=== PATIENT | male | born 1945 | race Caucasian/White ===

== ENCOUNTER 2020-03-17 08:46 | Day surgery (SDC) | payer MEDICARE, OTHER ==
[~2020-03-17] VITALS: Ht 177.8 cm; Wt 112.3 kg
[~2020-03-17 08:46] MED LIST: AMLO5 PO; BASAGLAR K100 UNIT/1 SC; HUMALOG JU100 UNIT/2 SC; HYDCHL25 PO; KLOR-CON M1010 MEQ PO; METF500 PO; TELM80 PO; testosterone inj IM
--- NOTE | 2020-03-17 09:30 | NUR ---
Patient states colon prep results clear. Ambulatory in Day Surgery. History, Chart, Medications and Allergies reviewed before start of procedure. Patient confirms NPO status and agrees with scheduled surgery. Patient confirms NPO status and agrees with scheduled surgery. Pre-Op teaching done. Pt verbalizes understanding. Patient States Post-Procedure ride home has been arranged.
--- NOTE | 2020-03-17 09:42 | NUR ---
03/17/20 0942 KATELYN MICHAEL History, Chart, Medications and Allergies reviewed before start of procedure. 3-LEAD EKG REVIEWED WITH PHYSICIAN PRIOR TO START OF PROCEDURE. O2 VIA N/C INTACT THROUGHOUT SEDATION/PROCEDURE. MONITOR INTACT WITH CONTINUOUS PULSE OXIMETRY AND INTERMITTENT BP. MODERATE SEDATION PER DR. FRIED.
== END 2020-03-17 10:47 | disposition home or self-care (01) ==
LOC: ORSCMMR 08:46 → ORD 09:30 → ORSCMMR 10:47
PROVIDERS: Anesthesiology; Internal Medicine Gastroenterology
PROC: 0DBN8ZX Excision of Sigmoid Colon, Via Natural or Artificial Opening Endoscopic, Diagnostic (ICD-10-PCS; principal; 2020-03-17 09:30)
DX: Z12.11 Encounter for screening for malignant neoplasm of colon (principal); Z86.010 Personal history of colon polyps; D12.5 Benign neoplasm of sigmoid colon; K57.30 Diverticulosis of large intestine without perforation or abscess without bleeding; I10 Essential (primary) hypertension; G47.33 Obstructive sleep apnea (adult) (pediatric); Z79.4 Long term (current) use of insulin; Z79.84 Long term (current) use of oral hypoglycemic drugs; Z79.899 Other long term (current) drug therapy
CPT/HCPCS: 82947; 88305; J2250; J3010; J7120; U0002

== ENCOUNTER 2020-09-09 07:25 | Day surgery (SDC) | payer MEDICARE, OTHER ==
[~2020-09-09] VITALS: Ht 177.8 cm; Wt 120.0 kg
[~2020-09-09 07:25] MED LIST changes: +COREG PO; +CYCL0.05OP RIGHTEYE; +EZET10; +FENO160 PO; +INSULIN AS100 UNIT10
[2020-09-09] MEDS ORDERED: HUMALOG100 UNIT/1 SC (07:59)
[2020-09-09] MEDS ORDERED: Aspir 8181 MG PO (09:30)
--- NOTE | 2020-09-09 11:03 | NUR ---
10CC AIR REMOVED FROM R WRIST TR BAND. -BLEEDING OR SWELLING.
== END 2020-09-09 23:50 | disposition home or self-care (01) ==
LOC: MHTC 07:25
DX: I35.0 Nonrheumatic aortic (valve) stenosis (principal); I44.0 Atrioventricular block, first degree; I11.0 Hypertensive heart disease with heart failure; I50.9 Heart failure, unspecified; E78.5 Hyperlipidemia, unspecified; E11.9 Type 2 diabetes mellitus without complications; Z79.4 Long term (current) use of insulin; E66.01 Morbid (severe) obesity due to excess calories; Z68.38 Body mass index [BMI] 38.0-38.9, adult; Z20.822 Contact with and (suspected) exposure to COVID-19; Z79.82 Long term (current) use of aspirin
CPT/HCPCS: 93454; 99152; C1769; C1894; J1644; J2250; J3010; J7030; J7040; J7050; Q9967

== ENCOUNTER → 2021-05-30 | Outpatient (CLI) | payer MEDICARE, OTHER ==
[~2021-05-30] MED LIST changes: +Aspir 8181 MG PO; +HUMALOG100 UNIT/1 SC
== END | disposition home or self-care (01) ==
LOC: LAB 11:04 → LAB SHORT 11:04
DX: D22.61 Melanocytic nevi of right upper limb, including shoulder (principal)
CPT/HCPCS: 88305

== ENCOUNTER 2022-05-12 08:58 | Inpatient (IN) | payer MEDICARE, OTHER ==
[~2022-05-12] VITALS: Ht 177.8 cm; Wt 125.8 kg
[~2022-05-12 08:58] MED LIST changes: +BASAGLAR K100 UNIT/1; -BASAGLAR K100 UNIT/1 SC
[2022-05-12 09:52] LABS: Albumin, Blood 3.1 g/dL (3.4-5.0); Albumin/Globulin Ratio 0.9 (0.8-1.8); Beta-hydroxybutyrate 32.8 mg/dL (0.2-2.8); Bilirubin, Total 1.4 mg/dL (0.1-1.0); Bun/Creatinine Ratio 49.3 (12.0-20.0); Calcium, Blood 8.8 mg/dL (8.5-10.1); Creatinine, Blood 1.38 mg/dL (0.60-1.20); Globulin, Blood 3.4 g/dL (2.2-4.0); Magnesium, Blood 2.3 mg/dL (1.6-2.4); Potassium, Blood 3.9 mmol/L (3.5-5.5); Total Protein, Blood 6.5 g/dL (6.4-8.2)
[2022-05-12 10:07] LABS: Hematocrit 29.4 % (37.0-53.0); Hemoglobin 10.4 g/dL (13.5-17.5); Mean Corpuscular HGB 29.6 pg (26.0-34.0); Mean Corpuscular HGB Conc 35.4 g/dL (31.5-36.5); Mean Corpuscular Volume 84 fL (80-100); Mean Platelet Volume 12.5 fL (9.1-12.4); RDW Coefficient Variation 13.4 % (11.7-14.2); RDW Standard Deviation 41.1 fL (35.1-46.3); Red Blood Cell Count 3.51 M/mm3 (4.30-5.90); White Blood Cell Count 9.28 K/mm3 (4.00-11.30)
[2022-05-12 10:12] LABS: Platelet Count 44 K/mm3 (150-400)
[2022-05-12 10:29] LABS: Influenza A, PCR NEGATIVE (NEGATIVE); Influenza B, PCR NEGATIVE (NEGATIVE); Resp Syncytial Virus, PCR NEGATIVE (NEGATIVE); SARS-Cov-2 (COVID-19) PCR, MMC NEGATIVE (NEGATIVE)
[2022-05-12 11:04] LABS: Source, Urine Clean Catch
[2022-05-12 11:10] LABS: BAND PERCENT MAN 39 % (0-8); BASOPHILS PERCENT MAN 0 % (0-2); EOSINOPHILS PERCENT MAN 0 % (0-6); LYMPHOCYTES ABSOLUTE MAN 0.27 K/mm3 (0.84-5.20); LYMPHOCYTES PERCENT MAN 3 % (21-46); MONOCYTES ABSOLUTE MAN 0.37 K/mm3 (0.16-1.47); MONOCYTES PERCENT MAN 4 % (4-13); NEUTROPHILS ABSOLUTE MAN 8.63 K/mm3 (1.96-9.15); SEG NEUTROPHILS PERCENT MAN 54 % (41-73); TOTAL CELLS COUNTED 100
[2022-05-12 11:30] LABS: Appearance, Urine Hazy (Clear); Bilirubin, Urine Neg (Neg); Blood, Urine 5+ (Neg); Color, Urine Yellow (P-Yellow); Glucose Qualitative, Urine 4+ (Neg); Ketones, Urine 1+ (Neg); Leukocyte Esterase, Urine 1+ (Neg); Nitrite, Urine Neg (Neg); Protein, Urine 3+ (Neg); Urobilinogen, Urine NORM (Normal)
[2022-05-12 11:41] LABS: Bacteria Rare /hpf; Red Blood Cells, Urine 0-2 /hpf (0-2); Squamous Epithelial Cells Few /hpf (Few)
[2022-05-12 11:43] LABS: Mucus Light (0-Heavy)
[2022-05-12 14:19] LABS: Acetaminophen, Random <2.0 ug/mL (10.0-30.0)
[2022-05-12 14:21] LABS: Phosphorus, Blood 2.2 mg/dL (2.5-4.9); Thyroid Stimulating Hormone 0.787 uIU/mL (0.360-4.800)
[2022-05-12 14:26] LABS: Albumin, Blood 2.6 g/dL (3.4-5.0); Anion Gap 15 mmol/L (6-16); Blood Urea Nitrogen 71 mg/dL (8-24); Bun/Creatinine Ratio 51.1 (12.0-20.0); CO2, Blood 19 mmol/L (21-32); Chloride, Blood 99 mmol/L (98-108); Creatinine, Blood 1.39 mg/dL (0.60-1.20); Glomerular Filtration Rate 53 (60-); Glucose, Blood 392 mg/dL (70-99); Phosphorus, Blood 2.2 mg/dL (2.5-4.9); Potassium, Blood 3.9 mmol/L (3.5-5.5); Sodium, Blood 133 mmol/L (136-145)
[2022-05-12 16:23] LABS: Hematocrit 29.7 % (37.0-53.0); Hemoglobin 10.3 g/dL (13.5-17.5); Mean Corpuscular HGB 29.4 pg (26.0-34.0); Mean Corpuscular HGB Conc 34.7 g/dL (31.5-36.5); Mean Corpuscular Volume 85 fL (80-100); RDW Coefficient Variation 13.6 % (11.7-14.2); RDW Standard Deviation 41.7 fL (35.1-46.3); White Blood Cell Count 9.53 K/mm3 (4.00-11.30)
[2022-05-12 16:35] LABS: Mean Platelet Volume 13.5 fL (9.1-12.4)
[2022-05-12 16:36] LABS: Platelet Count 37 K/mm3 (150-400)
[2022-05-12 16:50] LABS: BAND PERCENT MAN 22 % (0-8); BASOPHILS PERCENT MAN 0 % (0-2); EOSINOPHILS PERCENT MAN 0 % (0-6); LYMPHOCYTES % ATYPICAL MANUAL 1 % (0-0); LYMPHOCYTES ABSOLUTE MAN 0.19 K/mm3 (0.84-5.20); LYMPHOCYTES PERCENT MAN 1 % (21-46); MONOCYTES ABSOLUTE MAN 0.38 K/mm3 (0.16-1.47); MONOCYTES PERCENT MAN 4 % (4-13); NEUTROPHILS ABSOLUTE MAN 8.95 K/mm3 (1.96-9.15); SEG NEUTROPHILS PERCENT MAN 72 % (41-73); TOTAL CELLS COUNTED 100
[2022-05-12 18:14] LABS: D-Dimer, Quantitative 8.17 mg/L FEU (0.00-0.52)
--- NOTE | 2022-05-12 18:42 | NUR ---
PCU ADMIT / END OF SHIFT NOTE PT BROUGHT TO PCU-09 BY DEEPA FROM ER @ APPROX 1500. PT A&O X4. VSS. MONITOR SHOWING AFIB, HR 40s-70s. SPO2 > 92% ON 2L NC. PT REPORTS RA @ BASELINE & CPAP @ NIGHT. PT W/ L-SIDED WEAKNESS, UNABLE TO GENERAL AGENT THIS RN's HAND W/ LEFT HAND. MD HOGUE W/ ORDER FOR HEAD CT. HEAD CT DONE. PT BACK IN . W/ ORDER FOR REPEAT HEAD CT @ 0200. PT DENIES HEADACHE OR ANY OTHER PAIN/DISCOMFORT. PT DOES GRIMACE W/ REPOSITIONING IN BED. NS GTT INFUSING PER ORDERS. NA PHOS INFUSING PER ORDER. IRAHETA CATH PATENT & DRAINING. PT WAS AT THE BEDSIDE, NOW GONE. PT IN BED W/ BED ALARM ON. CALL LIGHT IN REACH.
--- NOTE | 2022-05-12 20:19 | NUR ---
Contacted Dr. Johnson regarding CBG order for q4, and coverage ordered for Q4 dosing, however emar only allows Q6 dosing. Advised to follow Q6 dosing every 4 hours.
--- NOTE | 2022-05-12 22:26 | NUR ---
Dr. Velasquez contacted regarding gram positive blood cultures in chains, and regarding patient worsening L side deficit. No response to painful stimuli, not able to lift arm. CT due at 0200 to be done now.
--- NOTE | 2022-05-13 00:11 | NUR ---
Contacted Dr. Velasquez regarding elevated CBG again at 0000 check at 455. New orders recieved and orders to retake CBG in 1 hr.
--- NOTE | 2022-05-13 01:39 | NUR ---
Dr. Gan notified of repeat CBG over 400, orders for 1L LR bolus and repeat CBG in 1 hr.
[2022-05-13 04:19] LABS: Hematocrit 27.2 % (37.0-53.0); Hemoglobin 9.5 g/dL (13.5-17.5); Mean Corpuscular HGB 29.4 pg (26.0-34.0); Mean Corpuscular HGB Conc 34.9 g/dL (31.5-36.5); Mean Corpuscular Volume 84 fL (80-100); RDW Coefficient Variation 13.6 % (11.7-14.2); RDW Standard Deviation 42.4 fL (35.1-46.3); Red Blood Cell Count 3.23 M/mm3 (4.30-5.90); White Blood Cell Count 9.08 K/mm3 (4.00-11.30)
--- NOTE | 2022-05-13 04:22 | NUR ---
Patient's BP began to drop with MAP's in 50's after the 1L LR bolus. Physician contacted and requested transfer to ICU for Levo gtt and another 1L LR bolus. Patient's CBG 375, RR 34, physician aware. Temp continues to be over 102 despite rectal tylenol, cooling pad, no blankets, and fan. Report given to Sabi Harden Soha notified of transfer.
[2022-05-13 04:29] LABS: Platelet Count 28 K/mm3 (150-400)
[2022-05-13 04:40] LABS: Albumin, Blood 2.2 g/dL (3.4-5.0); Albumin/Globulin Ratio 0.8 (0.8-1.8); Bilirubin, Total 1.1 mg/dL (0.1-1.0); Bun/Creatinine Ratio 49.2 (12.0-20.0); Calcium, Blood 7.7 mg/dL (8.5-10.1); Creatinine, Blood 1.89 mg/dL (0.60-1.20); Globulin, Blood 2.7 g/dL (2.2-4.0); Magnesium, Blood 2.4 mg/dL (1.6-2.4); Phosphorus, Blood 1.7 mg/dL (2.5-4.9); Potassium, Blood 3.7 mmol/L (3.5-5.5); Total Protein, Blood 4.9 g/dL (6.4-8.2)
[2022-05-13 04:44] LABS: BAND PERCENT MAN 21 % (0-8); BASOPHILS PERCENT MAN 0 % (0-2); EOSINOPHILS PERCENT MAN 0 % (0-6); LYMPHOCYTES % ATYPICAL MANUAL 1 % (0-0); LYMPHOCYTES ABSOLUTE MAN 0.36 K/mm3 (0.84-5.20); LYMPHOCYTES PERCENT MAN 3 % (21-46); MONOCYTES ABSOLUTE MAN 0.63 K/mm3 (0.16-1.47); MONOCYTES PERCENT MAN 7 % (4-13); NEUTROPHILS ABSOLUTE MAN 8.08 K/mm3 (1.96-9.15); SEG NEUTROPHILS PERCENT MAN 68 % (41-73); TOTAL CELLS COUNTED 100
--- NOTE | 2022-05-13 04:59 | NUR ---
RECIEVED REPORT FROM ANNY Solorzano RN. PATIENT TO ICU 12 FROM PCU AT 0410. PATIENT SLID TO BED. PATIEN IS LETHARIC BUT RESPONDS TO VERBAL STIMULI, ORIENTED TO SELF ONLY. UNABLE TO OPEN EYES OR FOLLOW ANY COMMANDS. LUE FLACCID, OTHERWISE LOCALIZES TO PAIN AND ABLE TO MOVE ALL EXTREMITIES. 02 SATS 98% ON CPAP WITH 3L 02. LS CLEAR TO DIMINISHED IN THE BASES. RR 25-30s, DRY COUGH. HR A.FIB 60-70s, WITH BRADYCARDIA DOWN TO THE 30s. BP STABLE WITH 1L LR FLUID BOLUS INFUSING AND 125 MLS/HR NS. WILL START LEVOPHED IF NEEDED. IRAHETA IS PATENT AND DRAINING TO GRAVITY, DARK JEREMIAH WITH SEDIMENT. RECTAL TEMP PROBE IN PLACE, TEMP OF 102.2 ON ARRIVAL TO THE UNIT, FAN AND ICE PACKS PLACED, TEMP NOW 101.5. PER PCU RR, FAMILY WAS NOTIFIED OF PATIENTS CONDITION AND TRANSFER TO ICU.
--- NOTE | 2022-05-13 07:02 | NUR ---
PATIENT ABLE TO FOLLOW SOME SIMPLE COMMANDS AND MOVE RIGHT SIDE, LEFT UPPER ARM REMAINS FLACCID. DR. HOGUE IN THE AM TO SEE PATIENT AND AWARE OF LOW PALTELET COUNT, BLOOD CULTURES. Q1 NEURO CHECKS. LEVOPHED TO BE STARTED IF MAP >55. SEE PREVIOUS NOTE FOR MORE INFORMATION.
[2022-05-13 07:46] LABS: International Normalized Ratio 1.13; Prothrombin Time Results 11.8 Sec (9.7-11.5); Uric Acid, Blood 10.3 mg/dL (3.5-7.2)
--- NOTE | 2022-05-13 17:11 | NUR ---
SHIFT SUMMARY PT HAS REMAINED LETHARGIC THIS SHIFT AND HAS SLEPT THROUGHOUT THE DAY. PT AWAKENS TO VERBAL STIMULI BREIFLY. PT ANSWERS SIMPLE QUESTIONS AND CAN SQUEEZE RIGHT HAND UPON COMMAND. LEFT UPPER EXTREMITY REMAINS FLACCID AND DOES NOT WITHDRAW TO NOXIOUS STIMULI. PT MOVES BOTH LEGS SPONTANEOUSLY. PT ON 6L O2 NC AT THIS TIME. PT ON CPAP OF 6 WITH 3L O2 BLEED IN MOST OF THE SHIFT. VITAL SIGNS STABLE. HR REMAINS AFIB WITH RATE 40-60'S. PICC PLACED TO CHARLES THIS SHIFT. BICARB INFUSING AT 100 ML/HR AND NS TKO. IRAHETA REMAINS IN PLACE WITH DARK YELLOW OUTPUT NOTED. PT SPOUSE AT BEDSIDE THIS AFTERNOON AND UPDATED TO PLAN OF CARE. WILL CONTINUE TO MONITOR AND REPORT OFF TO ONCOMING RN.
[2022-05-13 18:14] LABS: PCO2 Arterial 32.9 mmHg (35-45); PO2 Arterial 58.3 mmHg (80-100); pH Blood Arterial 7.44 (7.35-7.45)
--- NOTE | 2022-05-13 19:00 | NUR ---
ASSUMED CARE/CODE BLUE ASSUMED CARE FROM VENKATA RN, PT AWNSERING SIMPLE QUESTIONS, BUT NOT OPENING EYES. AFTER LEAVING ROOM FOLLOWING REPORT, PT BEGAN HAVING SEIZURE-LIKE MOVEMENTS. MULTIPLE STAFF IN ROOM AND PT ROLLED TO RIGHT SIDE. PT BECAME UNRESPONSIVE AND CODE BLUE ACTIVATED. PT INTUBATED. SEE CODE SHEET FOR EVENTS. OBTAINED ROSC. TO BEDSIDE. PT TO CT POST CODE. STARTED LEVOPHED IN CT. VASOPRESSIN STARTED IN ICU. SEE FLOWSHEET FOR TITRATIONS.
[2022-05-13 19:46] LABS: Hematocrit 30.6 % (37.0-53.0); Hemoglobin 10.3 g/dL (13.5-17.5); Mean Corpuscular HGB 29.1 pg (26.0-34.0); Mean Corpuscular HGB Conc 33.7 g/dL (31.5-36.5); Mean Corpuscular Volume 86 fL (80-100); RDW Coefficient Variation 13.8 % (11.7-14.2); RDW Standard Deviation 43.8 fL (35.1-46.3); Red Blood Cell Count 3.54 M/mm3 (4.30-5.90); White Blood Cell Count 15.65 K/mm3 (4.00-11.30)
[2022-05-13 19:51] LABS: International Normalized Ratio 1.13; Prothrombin Time Results 11.8 Sec (9.7-11.5)
[2022-05-13 19:54] LABS: Albumin, Blood 2.1 g/dL (3.4-5.0); Albumin/Globulin Ratio 0.7 (0.8-1.8); Calcium, Blood 7.6 mg/dL (8.5-10.1); Creatinine, Blood 1.89 mg/dL (0.60-1.20); Total Protein, Blood 5.1 g/dL (6.4-8.2)
[2022-05-13 20:07] LABS: Mean Platelet Volume 13.1 fL (9.1-12.4); Platelet Count 29 K/mm3 (150-400)
[2022-05-13 20:25] LABS: BAND PERCENT MAN 19 % (0-8); BASOPHILS PERCENT MAN 0 % (0-2); EOSINOPHILS ABSOLUTE MAN 0.15 K/mm3 (0.00-0.68); EOSINOPHILS PERCENT MAN 1 % (0-6); LYMPHOCYTES ABSOLUTE MAN 3.75 K/mm3 (0.84-5.20); LYMPHOCYTES PERCENT MAN 24 % (21-46); METAMYELOCYTE ABSOLUTE MAN 0.46 K/mm3 (0.00-0.00); METAMYELOCYTE PERCENT MAN 3 % (0-0); MONOCYTES PERCENT MAN 9 % (4-13); MYELOCYTE ABSOLUTE MAN 0.15 K/mm3 (0.00-0.00); MYELOCYTE PERCENT MAN 1 % (0-0); SEG NEUTROPHILS PERCENT MAN 43 % (41-73); TOTAL CELLS COUNTED 100
--- NOTE | 2022-05-13 21:45 | NUR ---
MAGGI UPDATED ON PATIENT STATUS. NO NEW ORDERS.
[2022-05-13 22:25] LABS: Creatine Kinase MB 3.4 ng/mL (0.0-3.6); Creatine Kinase MB Index 0.9 (0.0-4.0)
[2022-05-14 00:08] LABS: HBSAG SCREEN Negative (Negative); HCV AB <0.1 (0.0-0.9); HEP A AB, IGM Negative (Negative); HEP B CORE AB, IGM Negative (Negative); HIV AB/P24 AG SCREEN Non Reactive (Non Reactive)
--- NOTE | 2022-05-14 00:30 | NUR ---
INSULIN CALL MADE TO DR. CASTILLO REGARDING 2100 GLARGINE AND SLIDING SCALE INSULIN. ORDERS RECEIVED FOR GLARGINE TO BE DECREASED TO 20 UNITS BID FROM 40 UNITS BID AND SLIDING SCALE TO BE DECREASED FROM HIGH TO LOW SLIDING SCALE. IF BLOOD GLUCOSE IS BELOW 200 THEN SKIP 0900 DOSE OF GLARGINE.
[2022-05-14 05:39] LABS: Hematocrit 25.9 % (37.0-53.0); Hemoglobin 9.2 g/dL (13.5-17.5); Mean Corpuscular HGB 29.8 pg (26.0-34.0); Mean Corpuscular HGB Conc 35.5 g/dL (31.5-36.5); Mean Corpuscular Volume 84 fL (80-100); RDW Coefficient Variation 14.1 % (11.7-14.2); RDW Standard Deviation 43.5 fL (35.1-46.3); Red Blood Cell Count 3.09 M/mm3 (4.30-5.90); White Blood Cell Count 13.86 K/mm3 (4.00-11.30)
[2022-05-14 05:58] LABS: Albumin, Blood 2.1 g/dL (3.4-5.0); Albumin/Globulin Ratio 0.8 (0.8-1.8); Bilirubin, Total 1.9 mg/dL (0.1-1.0); Bun/Creatinine Ratio 56.2 (12.0-20.0); Calcium, Blood 7.4 mg/dL (8.5-10.1); Creatinine, Blood 2.03 mg/dL (0.60-1.20); Globulin, Blood 2.7 g/dL (2.2-4.0); Magnesium, Blood 2.6 mg/dL (1.6-2.4); Phosphorus, Blood 3.7 mg/dL (2.5-4.9); Potassium, Blood 3.5 mmol/L (3.5-5.5); Total Protein, Blood 4.8 g/dL (6.4-8.2)
[2022-05-14 06:03] LABS: Platelet Count 31 K/mm3 (150-400)
--- NOTE | 2022-05-14 06:32 | NUR ---
SHIFT SUMMARY PT INTUBATED AND SEDATED T/O NIGHT. AC/VC 16/550/10/60%. SPO2 GREATER THAN 92%. RR 20'S. LEVOPHED AND VASOPRESSIN GTT TITRATED TO KEEP MAP GREATER THAN 65. CAIO STARTED AND NOW ON STANDBY. PROPOFOL GTT FOR SEDATION. NO RESPONSE IN BUE. PUPILS SLUGGISH. AFIB WITH FREQUENT PAUSES UP TO 5 SECONDS. HR 30-60'S. OGT TO LIS, MINIMAL DARK BROWN/BLACK OUTPUT. IRAHETA IN PLACE AND DRAINING TO GRAVITY. 325ML OUTPUT. NATHAN NOTIFIED OF MORNING LABS AND ORDER RECEIVED TO DECREASE THE RATE OF SODIUM BICARB GTT TO 50ML/HR.
[2022-05-14 06:43] LABS: BAND PERCENT MAN 36 % (0-8); BASOPHILS PERCENT MAN 0 % (0-2); EOSINOPHILS PERCENT MAN 0 % (0-6); LYMPHOCYTES ABSOLUTE MAN 0.55 K/mm3 (0.84-5.20); LYMPHOCYTES PERCENT MAN 4 % (21-46); METAMYELOCYTE ABSOLUTE MAN 0.13 K/mm3 (0.00-0.00); METAMYELOCYTE PERCENT MAN 1 % (0-0); MONOCYTES ABSOLUTE MAN 0.55 K/mm3 (0.16-1.47); MONOCYTES PERCENT MAN 4 % (4-13); NEUTROPHILS ABSOLUTE MAN 12.61 K/mm3 (1.96-9.15); SEG NEUTROPHILS PERCENT MAN 55 % (41-73); TOTAL CELLS COUNTED 100
--- NOTE | 2022-05-14 07:00 | NUR ---
ASSUME CARE: I have assumed care of this patient.
[2022-05-14 10:48] LABS: PCO2 Arterial 31.9 mmHg (35-45); PO2 Arterial 67.1 mmHg (80-100); pH Blood Arterial 7.42 (7.35-7.45)
--- NOTE | 2022-05-14 13:33 | NUR ---
Family Meeting: Met with pt's Soha at bedside this morning. She was admittedly feeling "shook up" this morning. I introduced myself to her, and she asked if I could call her son right away, as he already "called a little while ago, and no one has called him back" she states. She tells me she "doesn't understand" what is happening, and that her son is a nurse, daughter- in-law a doctor, both for the [employer] in [place], [place]. Placed call to Joe, pt's son. He was pleasant, asked appropriate questions. He also requested a call from the intensivies, so I passed the request to Dr. Huerta. Pt underwent a sedation vacation at approx 1230pm and as of now, at 1430 he has not awakened. Palliatve care will remain availalable as neded.
--- NOTE | 2022-05-14 18:07 | NUR ---
SHIFT SUMMARY: NEURO: propofol paused for approximately 5 hours today. While off propofol, pt was visualized having localized seizure with rhythmic movement of the LUE with bilateral eye deviation to the left and up. Prior to seizure activity, pt opened eyes to stimuli. RN unable to produce any withdrawal or purposeful movement of extremities. Propofol restarted at [address] Huerta. Eyes deviated up at this time. +cough/+corneals/+babinski/-gag/-oculocephalic CARDIAC: afib on monitor. pauses up to 5 seconds noted prior to dopamine initiation. HR in 80's without pauses since dopamine started. levophed since titrated off. Vasopressin off since AM. RESPIRATORY: AC/VC 16/550/10/50%. minimal secretions GI/: VHP tube feeds initiated at 20. BM this AM. Gibson in place and training to gravity. SKIN: no breakdown noted PSYCH/SOCIAL: at bedside and supportive throughout the day. Son, Joe, called and updated on pt status.
--- NOTE | 2022-05-15 03:00 | NUR ---
SEIZURE LIKE ACTIVITY VISULIZED IN THE LT HAND TWITCHING THUMB GAVE 2MG OF VERSED TWITCHING STOPPED
[2022-05-15 04:07] LABS: BASOPHILS ABSOLUTE AUTO 0.02 K/mm3 (0.00-0.23); BASOPHILS PERCENT AUTO 0 % (0-2); EOSINOPHILS ABSOLUTE AUTO 0.06 K/mm3 (0.00-0.68); EOSINOPHILS PERCENT AUTO 1 % (0-6); Hematocrit 24.9 % (37.0-53.0); Hemoglobin 8.7 g/dL (13.5-17.5); IMMATURE GRAN ABSOLUTE AUTO 0.24 K/mm3 (0.00-0.10); IMMATURE GRAN PERCENT AUTO 2 % (0-1); LYMPHOCYTES ABSOLUTE AUTO 0.96 K/mm3 (0.84-5.20); LYMPHOCYTES PERCENT AUTO 7 % (21-46); MONOCYTES ABSOLUTE AUTO 0.97 K/mm3 (0.16-1.47); MONOCYTES PERCENT AUTO 7 % (4-13); Mean Corpuscular HGB 29.2 pg (26.0-34.0); Mean Corpuscular HGB Conc 34.9 g/dL (31.5-36.5); Mean Corpuscular Volume 84 fL (80-100); Mean Platelet Volume 12.9 fL (9.1-12.4); NEUTROPHILS ABSOLUTE AUTO 10.85 K/mm3 (1.96-9.15); NEUTROPHILS PERCENT AUTO 83 % (41-73); Platelet Count 62 K/mm3 (150-400); RDW Coefficient Variation 14.2 % (11.7-14.2); RDW Standard Deviation 43.5 fL (35.1-46.3); Red Blood Cell Count 2.98 M/mm3 (4.30-5.90)
[2022-05-15 04:11] LABS: Base Excess Venous 1.7 mmol/L; Bicarbonate Venous 25.6 mmol/L (24.0-30.0); PCO2 Venous 39.1 mmHg (38-42); pH Blood Venous 7.43 (7.34-7.37)
[2022-05-15 04:32] LABS: International Normalized Ratio 1.16; Prothrombin Time Results 12.1 Sec (9.7-11.5)
[2022-05-15 04:36] LABS: Albumin, Blood 1.9 g/dL (3.4-5.0); Albumin/Globulin Ratio 0.7 (0.8-1.8); Bilirubin, Total 1.9 mg/dL (0.1-1.0); Calcium, Blood 7.3 mg/dL (8.5-10.1); Creatinine, Blood 1.61 mg/dL (0.60-1.20); Globulin, Blood 2.8 g/dL (2.2-4.0); Magnesium, Blood 2.8 mg/dL (1.6-2.4); Phosphorus, Blood 2.4 mg/dL (2.5-4.9); Potassium, Blood 3.2 mmol/L (3.5-5.5); Total Protein, Blood 4.7 g/dL (6.4-8.2)
--- NOTE | 2022-05-15 06:43 | NUR ---
END OF SHIFT PT HAS REMAINED HANNA STABLE ON 10 OF DOPAMINE TIRATED TO MAINTAIN MAP >70. HE IS SEDATED ON PROP AT 25 GTT. VERSED 2MG GIVEN FOR SEIZURE ACTIVITIY AND VALUME 5MG GIVEN FOR SEIZURE ACTIVITY. LEFT HAND THUMB TWITCHES AND MOUTH TWITHCHING AND AT ITS WORST THE RT ARM RYTHMICLY MOVING. NEURO + CORNIAL AND COUGH NO GAG AND NO OTHER MOVEMENT TO PAIN PT HAS + BABINSKY RLE. PUPIL BL 2MM SLUGISH. WILL CONTINUE TO MONITOR AND REPORT OFF TO ONCOMING RN
--- NOTE | 2022-05-15 09:24 | NUR ---
ASSUMED CARE REPORT FROM LENIN DELANEY AT 0700. PT INTUBATED AND SEDATED. VENT SETTINGS AC/VC 16/550/8/60%. LUNGS CLEAR. SMALL THICK OTERO SECRETIONS FROM ETT. PROPOFOL GTT INFUSING. PT GRIMACES c ORAL CARE. DOES NOT FOLLOW COMMANDS. NO CORNEAL REFLEX, +COUGH/SWALLOW, NO GAG. DOES NOT WITHDRAW EXT TO PAIN. + BABINSKI TO LLE. OCCASIONAL RHYTHMIC MOVEMENT TO LEFT HAND. NO OTHER MOVEMENT NOTED. SR, RATE 60-70'S ON MONITOR. DOPAMINE GTT INFUSING FOR MAP>70. ABD OBESE, SOFT, NON TENDER, BT X 4. TUBE FEED AT 45 ML/HR c 30 ML FLUSH q4 HR. IRAHETA PATENT, DRAINING CLEAR YELLOW URINE TO GRAVITY. PICC TO E, DRESSING C/D/I. NAHCO3 AT 50 ML/HR. PLAN FOR EEG THIS SHIFT. WILL CONTINUE TO MONITOR.
[2022-05-15 11:13] LABS: Vancomycin, Random 10.6 ug/mL
[2022-05-15 11:28] LABS: Glucose, Blood 533 mg/dL (70-99)
--- NOTE | 2022-05-15 15:12 | NUR ---
SEDATION VACATION/EEG PROPOFOL PLACED ON STANDBY FOR APPROX 45 MINUTES DURING EEG. TREMORS TO LEFT HAND INCREASED. PT DOES NOT OPEN EYES SPONT OR FOLLOW COMMANDS. PT HAD TWO EPISODES OF MOVEMENT OF HEAD TO LEFT SIDE c RHYTHMIC JERKING. PT APPEARS TO BE BITING ON ETT AND WAS UNRESPONSIVE TO PAINFUL STIMULI. PROPOFOL RESTARTED.
--- NOTE | 2022-05-15 17:27 | NUR ---
SHIFT SUMMARY PT REMAINS INTUBATED AND SEDATED. VENT SETTINGS UNCHANGED 16/550/8/50%. LUNGS CLEAR. SMALL THICK OTERO SECRETIONS FROM ETT. PROPOFOL GTT FOR SEDATION, SEE PREVIOUS NOTE FOR SEDATION VACATION/EEG. COUGH/SWALLOW REFLEX. DOES NOT FOLLOW COMMANDS, OPEN EYES OR WITHDRAW FROM PAINFUL STIMULI. GRIMACES c ORAL CARE. OCCASIONAL TICKS TO LEFT HAND. ABLE TO INITIATE COUGH AND GRIMACE WHEN PT HAVING THESE HAND MOVEMENTS. AFIB c PACS, RATE 60'S. DOPAMINE GTT FOR MAP>70, INFUSING AT 10 MCG/KG/MIN. TUBE FEEDS AT GOAL, 55 ML/HR. ABD OBESE, SOFT, NON TENDER. BT X 4. IRAHETA PATENT, DRAINED 1750 ML CLEAR YELLOW URINE OUT. TMAX 101.2, TYLENOL GIVEN AND FAN PLACED. INSULIN GTT STARTED THIS SHIFT, q1 HR CHEMBG. PICC TO VIOLETA, DRESSING C/D/I. WILL CONTINUE TO MONITOR UNTIL REPORT TO ONCOMING NURSE.
--- NOTE | 2022-05-15 18:45 | NUR ---
EEG RESULTS SPOKE c DR NINA. REPORTED TWO SEIZURES LASTING APPROX 40-50 SEC ON EEG. THESE CORELATED c HEAD TURNED TO RIGHT, HEAD, NECK, LEFT ARM MOVEMENT. FREQUENT LEFT HAND MOVEMENT DID NOT CORELATE c ANY SEIZURES. DR MENDENHALL UPDATED.
--- NOTE | 2022-05-15 19:15 | NUR ---
ASSUMED CARE OF PT @1900. BEDSIDE REPORT. PT IS SEDATED AND INTUBATED. PROPOFOL 25MCG/KG/MIN. ETT 8.0 & 25@TEETH. AC VC 16/550/8/50%. HR 60'S, SBP 100-110, MAP >70. DOPAMINE 8MCG/KG/MIN. RR 20, SPO2 >92%. PICC LINE IN CHARLES INFUSING AND PATENT. INSULIN 12U/HR, BICARB 50MLS/HR, TKO NS 10MLS/HR. 20GA IV L HAND PATENT AND SALINE LOCK. SCD'S ON, RECTAL TEMP PROBE IN PLACE T-100.3. OG TUBE INFUSING VITAL HP @55MLS/HR GOAL RATE.
--- NOTE | 2022-05-16 02:10 | NUR ---
SEIZURE ACTIVITY VISUALIZED DURING REPOSITIONING. PT EXPERIENCED GENERALIZED TWITCHING AND UPWARD GAZE FOR APPROX 30 SECONDS.
--- NOTE | 2022-05-16 04:05 | NUR ---
PT HAVING INCREASE IN SEIZURE ACTIVITY. DR VARELA NOTIFIED. VALIUM ADDED TO EMAR FOR PRN ADMINISTRATION.
[2022-05-16 04:06] LABS: Hematocrit 26.1 % (37.0-53.0); Hemoglobin 8.9 g/dL (13.5-17.5)
[2022-05-16 04:28] LABS: Albumin, Blood 1.8 g/dL (3.4-5.0); Anion Gap 9 mmol/L (6-16); Blood Urea Nitrogen 101 mg/dL (8-24); Bun/Creatinine Ratio 79.5 (12.0-20.0); CO2, Blood 27 mmol/L (21-32); Calcium, Blood 7.9 mg/dL (8.5-10.1); Chloride, Blood 105 mmol/L (98-108); Creatinine, Blood 1.27 mg/dL (0.60-1.20); Glomerular Filtration Rate 59 (60-); Glucose, Blood 241 mg/dL (70-99); Magnesium, Blood 2.8 mg/dL (1.6-2.4); Potassium, Blood 3.1 mmol/L (3.5-5.5); Sodium, Blood 141 mmol/L (136-145)
--- NOTE | 2022-05-16 06:14 | NUR ---
SUMMARY NEURO/PSYCH/MOBILITY: PT IS SEDATED AND INTUBATED. PROPOFOL 25MCG/KG/MIN. PT HAS CONTINUAL MYOCLONUS OF LUE. PT'S PLANTAR REFLEX ON LLE RESEMBLES A POSITIVE BABINSKI REFLEX. DOES NOT WITHDRAW FROM OTHER NOXIOUS STIMULI. SLIGHT FACIAL GRIMACE DURING ORAL SUCTIONING AND ORAL CARE. PUPILS SMALL AND SLUGGISH. NEGATIVE CORNEAL REFLEX. DURING 0200 REPOSITIONING PT OBSERVED EXHIBITING SEIZURE ACTIVITY FOR APPROX 30 SECONDS. GENERALIZED MYOCLONUS AND EYES ROLLED UPWARDS. PT CONTINUED TO HAVE MORE EPISODES OF SEIZURE LIKE ACTIVITY. DR VARELA NOTIFIED AND VALIUM ORDERED AND GIVEN PRN. PT TMAX THIS SHIFT 100.2. BSWR IN PLACE. PT IS MAXIMUM ASSISTANCE FOR ALL ADL'S. RESP: INTUBATED. AC VC 16/550/8/50%. RR 16-20. SPO2 >94%. LUNG SOUNDS CLEAR W/DIMINISHED BASES. CARDIAC: AFIB RHYTHM. DOPAMINE 7MCG/KG/MIN. HR 60'S. SBP 130-140'S. CONTINUOUS CARDIAC MONITORING. EDEMA 1+ IN ALL EXTREMETIES. GI: OGT INFUSING VITAL HP @55MLS/HR GOAL RATE. BOWEL SOUNDS MORE ACTIVE THROUGHOUT SHIFT. NO BM THIS SHIFT. : TEMP IRAHETA PATENT AND DRAINING DARK YELLOW URINE TO GRAVITY. SKIN: ASSESSEMENT REMAINS UNCHANGED. PICC CHARLES PATENT AND INFUSING. ENDO: INSULIN INFUSING @15U/HR. CBG Q1HR
[2022-05-16 06:35] LABS: BASOPHILS ABSOLUTE AUTO 0.03 K/mm3 (0.00-0.23); BASOPHILS PERCENT AUTO 0 % (0-2); EOSINOPHILS ABSOLUTE AUTO 0.03 K/mm3 (0.00-0.68); EOSINOPHILS PERCENT AUTO 0 % (0-6); Hematocrit 25.2 % (37.0-53.0); Hemoglobin 8.9 g/dL (13.5-17.5); IMMATURE GRAN ABSOLUTE AUTO 0.67 K/mm3 (0.00-0.10); IMMATURE GRAN PERCENT AUTO 4 % (0-1); LYMPHOCYTES ABSOLUTE AUTO 1.05 K/mm3 (0.84-5.20); LYMPHOCYTES PERCENT AUTO 6 % (21-46); MONOCYTES ABSOLUTE AUTO 1.24 K/mm3 (0.16-1.47); MONOCYTES PERCENT AUTO 7 % (4-13); Mean Corpuscular HGB 29.8 pg (26.0-34.0); Mean Corpuscular HGB Conc 35.3 g/dL (31.5-36.5); Mean Corpuscular Volume 84 fL (80-100); NEUTROPHILS ABSOLUTE AUTO 15.85 K/mm3 (1.96-9.15); NEUTROPHILS PERCENT AUTO 84 % (41-73); Platelet Count 80 K/mm3 (150-400); RDW Coefficient Variation 14.3 % (11.7-14.2); RDW Standard Deviation 44.4 fL (35.1-46.3); Red Blood Cell Count 2.99 M/mm3 (4.30-5.90); White Blood Cell Count 18.87 K/mm3 (4.00-11.30)
[2022-05-16 06:48] LABS: Mean Platelet Volume 13.8 fL (9.1-12.4)
--- NOTE | 2022-05-16 08:18 | NUR ---
ASSUMED CARE BEDSIDE REPORT FROM BASILIO/SHELLY DELANEY AT 0700. PT INTUBATED AND SEDATED. VENT SETTINGS AC/VC 16/550/8/50%. LUNGS CLEAR. SCANT THIN CLEAR SECRETIONS FROM ETT. PROPOFOL GTT FOR SEDATION. AT SHIFT CHANGE AND AM ASSESSMENT, TWO SEIZURE ACTIVITY NOTED, UPWARD GAZE, HEAD AND LEFT SHOULDER JERKING. INCREASED PROPOFOL TO 35 MCG/KG/MIN, NO FURTHER SEIZURE ACTIVITY AT THIS TIME. COUGH/SWALLOW REFLEX. PUPILS PINPOINT. FLEXS BILATERAL TOES WHEN BOTTOM OF FOOT STIMULATED, GRIMACES c TRAPEZE PINCH, DOES NOT WITHDRAW UPPER EXT. DOPAMINE FOR MAP>70, TITRATING DOWN. AFIB, RATE 50-60'S. ABD OBESE, SOFT, HYPER ACTIVE BT. TUBE FEEDS AT GOAL. IRAHETA PATENT, DRAINING CLEAR YELLOW URINE TO GRAVITY. RECTAL TEMP PROBE, 98.4. INSULIN GTT c q1 CHEMBG. BICARB GTT, K AND PHOS BEING REPLACED. PICC TO [facility], DRESSING C/D/I. WILL CONTINUE TO MONITOR.
[2022-05-16 11:22] LABS: Vancomycin, Trough 15.8 ug/mL (5.0-10.0)
[2022-05-16 12:27] LABS: Triglycerides 576 mg/dL (30-160)
--- NOTE | 2022-05-16 14:24 | NUR ---
CHANGE IN STATUS PT AFIB, RATE 30'S ON MONITOR. HYPOTENSION. DR CORREA CALLED TO BEDSIDE. INCREASED DOPAMINE, 1 AMP EPI(1409), 1 AMP ATROPINE (1409) GIVEN. HR INCREASED TO 1100, HYPERTENSIVE. TITRATED DOPAMINE DOWN TO 10 MCG/KG/MIN. NO SEIZURE ACTVITY. PUPILS 2 MM, REACTIVE. PT PENDING TRANSFER TO [facility].
[2022-05-16 14:54] LABS: Bun/Creatinine Ratio 79.1 (12.0-20.0); Calcium, Blood 7.7 mg/dL (8.5-10.1); Creatinine, Blood 1.15 mg/dL (0.60-1.20); Magnesium, Blood 2.6 mg/dL (1.6-2.4); Phosphorus, Blood 3.3 mg/dL (2.5-4.9); Potassium, Blood 3.8 mmol/L (3.5-5.5)
--- NOTE | 2022-05-16 15:16 | NUR ---
TRANSFER TO [facility] REACH AT BEDSIDE. REPORT GIVEN. AFIB, RATE 60-70'S. BP STABLE. DOPAMINE 15 MCG/KG/MIN. FIO2 INCREASED TO 80%. VENT SETTINGS AC/VC 16/550/8/80%. LUNGS CLEAR. TUBE FEEDS PLACED ON STANDBY. WILL REPORT [facility]
== END 2022-05-16 15:45 | disposition short-term general hospital (02) | DRG 85 ==
LOC: ER 08:58 → PCU 13:14 → ICUW 13:14 → PCU 15:11 → ICUW 05-13 04:10
PROVIDERS: Emergency Medicine; Internal Medicine; Internal Medicine Critical Care Medicine; Internal Medicine Nephrology; ADMIT Family Medicine
PROC: 5A12012 Performance of Cardiac Output, Single, Manual (ICD-10-PCS; principal; 2022-05-13)
PROC: 3E033XZ Introduction of Vasopressor into Peripheral Vein, Percutaneous Approach (ICD-10-PCS; 2022-05-13)
PROC: 5A1945Z Respiratory Ventilation, 24-96 Consecutive Hours (ICD-10-PCS; 2022-05-13)
PROC: 0BH17EZ Insertion of Endotracheal Airway into Trachea, Via Natural or Artificial Opening (ICD-10-PCS; 2022-05-13)
PROC: 30233R1 Transfusion of Nonautologous Platelets into Peripheral Vein, Percutaneous Approach (ICD-10-PCS; 2022-05-13)
PROC: 02HV33Z Insertion of Infusion Device into Superior Vena Cava, Percutaneous Approach (ICD-10-PCS; 2022-05-13)
PROC: 30233K1 Transfusion of Nonautologous Frozen Plasma into Peripheral Vein, Percutaneous Approach (ICD-10-PCS; 2022-05-13)
PROC: 3E03329 Introduction of Other Anti-infective into Peripheral Vein, Percutaneous Approach (ICD-10-PCS; 2022-05-13)
DX: S06.6X0A Traumatic subarachnoid hemorrhage without loss of consciousness, initial encounter (principal); A40.1 Sepsis due to streptococcus, group B; I46.9 Cardiac arrest, cause unspecified; J18.9 Pneumonia, unspecified organism; R65.21 Severe sepsis with septic shock; R57.0 Cardiogenic shock; J96.90 Respiratory failure, unspecified, unspecified whether with hypoxia or hypercapnia; I48.19 Other persistent atrial fibrillation; S22.31XA Fracture of one rib, right side, initial encounter for closed fracture; I13.0 Hypertensive heart and chronic kidney disease with heart failure and stage 1 through stage 4 chronic kidney disease, or unspecified chronic kidney disease; I50.22 Chronic systolic (congestive) heart failure; N17.9 Acute kidney failure, unspecified; N39.0 Urinary tract infection, site not specified; M62.82 Rhabdomyolysis; E87.1 Hypo-osmolality and hyponatremia; N18.9 Chronic kidney disease, unspecified; E11.22 Type 2 diabetes mellitus with diabetic chronic kidney disease; D63.1 Anemia in chronic kidney disease; I35.0 Nonrheumatic aortic (valve) stenosis; D69.6 Thrombocytopenia, unspecified; G47.33 Obstructive sleep apnea (adult) (pediatric); E86.0 Dehydration; E11.65 Type 2 diabetes mellitus with hyperglycemia; E88.89 Other specified metabolic disorders; N14.19 Nephropathy induced by other drugs, medicaments and biological substances; E78.00 Pure hypercholesterolemia, unspecified; E87.6 Hypokalemia; E83.42 Hypomagnesemia; E83.39 Other disorders of phosphorus metabolism; E88.09 Other disorders of plasma-protein metabolism, not elsewhere classified; W06.XXXA Fall from bed, initial encounter; E66.01 Morbid (severe) obesity due to excess calories; Z79.4 Long term (current) use of insulin; Z95.2 Presence of prosthetic heart valve; Z79.2 Long term (current) use of antibiotics; Z79.891 Long term (current) use of opiate analgesic; Z99.81 Dependence on supplemental oxygen; Z79.899 Other long term (current) drug therapy; Z79.82 Long term (current) use of aspirin; Z79.84 Long term (current) use of oral hypoglycemic drugs; Z98.890 Other specified postprocedural states; Z90.49 Acquired absence of other specified parts of digestive tract; Z98.52 Vasectomy status; Z98.61 Coronary angioplasty status; Z20.822 Contact with and (suspected) exposure to COVID-19; Z68.35 Body mass index [BMI] 35.0-35.9, adult
CPT/HCPCS: 0241U; 36415; 36430; 36569; 36600; 70450; 71045; 71250; 74176; 76770; 80048; 80053; 80069; 80074; 80202; 81001; 82010; 82550; 82553; 82803; 82947; 83605; 83690; 83735; 83880; 84100; 84443; 84478; 84484; 84550; 85014; 85018; 85025; 85379; 85384; 85610; 85730; 86900; 86901; 87040; 87070; 87077; 87086; 87147; 87186; 87205; 87389; 92950; 93005; 93010; 93306; 93970; 94003; 94660; 94762; 95819; 96361; 96374; 96375; 99285-25; A9270; C1751; C9113; G0480; J0461; J0881; J1170; J1265; J1720; J1815; J1953; J2060; J2250; J2370; J2405; J2543; J2704; J3360; J3370; J3480; J7030; J7040; J7050; J7060; J7120; P9035; P9047; Q2009